=== PATIENT | female | born 1935 | race Caucasian/White ===

== ENCOUNTER 2022-07-13 11:40 | Emergency (ER) | payer MEDICARE, OTHER ==
[~2022-07-13] VITALS: Ht 167.6 cm; Wt 64.5 kg
[~2022-07-13 11:40] MED LIST: LISI10TA27 PO
[2022-07-13 12:09] VITALS: BP 158/83
[2022-07-13] MEDS ORDERED: HYDROcodone/acetaminophen 5mg/325mg tablet PO ONE (13:55)
[2022-07-13] MEDS ORDERED: cyclobenzaprine 10mg tablet PO ONE (13:55)
--- NOTE | 2022-07-13 14:50 | NUR ---
ASSISTED PT TO THE BATHROOM FOR UA
[2022-07-13 15:18] LABS: CLARITY,URINE CLEAR (Clear); COLOR,URINE YELLOW (Yellow); GLUCOSE, URINE NEGATIVE (Neg); KETONES,URINE TRACE mg/dl (Neg); LEUKOCYTE ESTERASE ,URINE NEGATIVE (Neg); NITRITES, URINE NEGATIVE (Neg); OCCULT BLOOD,URINE TRACE-INTACT (Neg); PROTEIN,URINE NEGATIVE (Neg); UROBILINOGEN,URINE 0.2 E.U/dL (0.2-1.0)
[2022-07-13 15:19] LABS: UA COLLECTION TYPE CLN CATCH MIDSTREAM
[2022-07-13 15:25] LABS: BACTERIA,URINE NONE SEEN /HPF (Neg); RBC,URINE 0-2 /HPF (0-2); SQUAMOUS EPITHELIAL CELL,UR NONE SEEN /LPF (FEW); WBC,URINE 0-4 /HPF (0-4)
[2022-07-13] MEDS ORDERED: NAPR-56 PO (16:09)
[2022-07-13] MEDS ORDERED: LIDO700A32 TOP (16:09)
== END 2022-07-13 16:51 | disposition home or self-care (01) ==
LOC: ER 11:41
DX: S39.012A Strain of muscle, fascia and tendon of lower back, initial encounter (principal); M81.0 Age-related osteoporosis without current pathological fracture; X58.XXXA Exposure to other specified factors, initial encounter; Y93.89 Activity, other specified; Y92.89 Other specified places as the place of occurrence of the external cause; Y99.8 Other external cause status
CPT/HCPCS: 72131; 81001; 99284